=== PATIENT | female | born 1955 | race Caucasian/White ===

== ENCOUNTER 2018-08-09 19:45 | Observation (INO) ==
[2018-08-09 20:36] LABS: Hematocrit 21.7 % (35.3-44.9); Hemoglobin 6.2 g/dL (11.5-15.4); Mean Corpuscular HGB Conc 28.6 g/dL (31.6-35.5); Mean Corpuscular Hemoglobin 19.4 pg (28.0-33.3); Mean Corpuscular Volume 67.8 fL (83.0-100.0); Mean Platelet Volume 8.1 fL (9.4-12.4); Platelet Count 576 K/mcL (140-400); Red Cell Distribution Width 18.6 % (11.5-14.5); White Blood Count 9.3 K/mcL (4.3-11.1)
[2018-08-09 20:52] LABS: BUN/Creatinine Ratio 20 (6-26); Blood Urea Nitrogen 20 mg/dL (8-23); Carbon Dioxide 25 mEq/L (23-29); Chloride 100 mEq/L (98-107); Glucose 108 mg/dL (70-105); Osmolality,Calculated 285 (280-300); Potassium 4.2 mEq/L (3.5-5.1); Sodium 136 mEq/L (136-145); eGFR For African Americans > 60 (> 60); eGFR For Non-African Americans 57 (> 60)
--- NOTE | 2018-08-09 21:27 | Emergency Department Note ---
Disposition Clinical Impression: Anemia Qualifiers: Anemia type: unspecified type Qualified Code(s): D64.9 - Anemia, unspecified Disposition: Admitted As Inpatient Condition: Fair Time of Disposition: 22:30 Recheck wound or abnormal lab - General Chief Complaint: ED Recheck/Abnormal Lab/Rx Stated Complaint: low hgb Source: patient Mode of arrival: private vehicle Limitations: no limitations Nursing Notes Reviewed: Yes Vital Signs Reviewed: Yes - History of Present Illness HPI Narrative: Patient presents to the ED stating that she had outpatient lab work performed today as preop for her upcoming carpal tunnel surgery and was called and told that her blood counts were very low and she should come to the ER because she may need a blood transfusion. She admits to feeling short of breath and very fatigued over the past few days but just attributed it to her depression. She also had noticed that her heart rate had been elevated for the past few weeks ov er 100. She states her heart rate was as high as 130 when she was having her preop testing done. She does have remote history of anemia in the past back in 2011. States they never found a cause and she did see a automatic mold sander. She was on iron supplements for awhile but never required a blood transfusion. She denies any hematochezia, melena or hematuria. - Related Data Home Medications Medication Instructions Recorded Confirmed BuPROPion [Wellbutrin] 75 mg PO DAILY 05/14/18 08/09/18 Methylphenidate HCl [Ritalin] 60 mg PO DAILY 05/14/18 08/09/18 traZODone [TraZODone] 75 mg PO HS 05/14/18 08/09/18 Lipitor 08/09/18 Meloxicam [Mobic] 15 mg PO DAILY 08/09/18 08/09/18 Venlafaxine XR (24 HR) [Effexor XR] 150 mg PO DAILY 08/09/18 08/09/18 Allergies Allergy/AdvReac Type Severity Reaction Status Date / Time No Known Allergies Allergy Verified 08/09/18 08:52 Constitutional: Denies: fever, chills, weakness, weight change Eyes: Denies: eye pain, eye discharge, vision change ENT ED: Denies: ear pain, throat pain, dental pain, hearing loss, epistaxis, congestion, dysphagia Cardiovascular: Denies: chest pain, palpitations, dyspnea on exertion, edema, syncope Respiratory: Reports: as per HPI, dyspnea. Denies: cough, wheezes, hemoptysis, stridor Gastrointestinal: Denies: abdominal pain, nausea, vomiting, diarrhea, constipation, hematemesis, melena, hematochezia Genitourinary: Denies: dysuria, frequency, hematuria, discharge Musculoskeletal: Denies: back pain, neck pain, arthralgia, myalgia Integumentary: Denies: rash, abrasion, lesions Neurological: Denies: headache, weakness, numbness, paresthesias, confusion, abnormal gait, vertigo Psychiatric: Denies: anxiety, depression, suicidal thoughts, homicidal thoughts, auditory hallucinations, visual hallucinations Endocrine: Reports: fatigue Hematological/Lymphatic: Denies: easy bleeding, easy bruising Allergic/Immunologic: Denies: facial swelling, urticaria Past Medical History - Past Medical History Medical history: Reports: arthritis, GERD, hyperlipidemia, hypertension Surgical history: Reports: appendectomy, , cancer surgery, knee replacement, orthopedic, other Psychiatric history: Reports: ADHD - Social History Smoking Status: Never smoker Smokeless Tobacco Status: No Alcohol use: Reports: none Drug use: Reports: none Physical Exam - General Limitations: no limitations General appearance: alert, in no apparent distress - Head Head exam: atraumatic, normocephalic, normal inspection - Eye Eye exam: Present: normal appearance, PERRL, EOMI - ENT ENT exam: normal exam, normal oropharynx, mucous membranes moist - Chest Chest inspection: Present: normal inspection, symmetric chest wall rise - Respiratory Respiratory exam: Present: normal lung sounds bilaterally - Cardiovascular Cardiovascular exam: Present: regular rate, normal rhythm, normal heart sounds - Abdominal Exam Abdominal exam: Present: soft, Non-Tender. Absent: tenderness, distention, guarding, rebound, rigidity - Extremities Exam Extremities exam: Present: normal inspection, full ROM, normal capillary refill. Absent: tenderness, pedal edema - Neurological Exam Neurological exam: Present: alert, oriented X3 - Psychiatric Psychiatric exam: Present: normal affect, normal mood - Skin Skin exam: Present: warm, dry, intact, pallor Course Course Narrative: Dexter presents to the ED after being informed that she was very anemic based on outpatient lab work. She apparently has been having symptoms for at least a few days. On arrival she is hemodynamically stable and nontoxic in appearance. Will recheck lab work and stool guaiac for potential blood loss source. - Reevaluation(s) Reevaluation #1: Labs show an H&H of 6.2 and 21.7. Stool guaiac is negative. Discussed with patient the need for a blood transfusion and she is in agreement. I spoke to the hospitalist on-call, Dr. Cassidy who has agreed to accept the patient. We will also check an iron panel. Vital Signs Temperature 98.5 F 08/09/18 19:49 Pulse Rate 103 08/09/18 19:49 Respiratory Rate 18 08/09/18 19:49 Blood Pressure 148/93 08/09/18 19:49 O2 Sat by Pulse Oximetry 98 08/09/18 19:49 Temperature 98.8 F 08/10/18 03:30 Pulse Rate 97 08/10/18 03:30 Respiratory Rate 16 08/10/18 03:30 Blood Pressure 116/72 08/10/18 03:30 O2 Sat by Pulse Oximetry 94 08/10/18 03:30 Oxygen Delivery Oxygen Delivery Room Air Recheck wound or abnormal lab - Medical Records Medical records reviewed: Yes I reviewed the patient's medical records. - Lab Data Lab results reviewed: Yes I reviewed the patient's lab results. Result diagrams: 08/09/18 20:30 08/09/18 20:30 Lab Results 08/09/18 08/09/18 08/09/18 Range/Units 20:30 20:30 20:30 WBC 9.3 (4.3-11.1) K/mcL RBC 3.20 L (3.82-4.97) M/mcL Hgb 6.2 L (11.5-15.4) g/dL Hct 21.7 L (35.3-44.9) % MCV 67.8 L (83.0-100.0) fL MCH 19.4 L (28.0-33.3) pg MCHC 28.6 L (31.6-35.5) g/dL RDW 18.6 H (11.5-14.5) % Plt Count 576 H (140-400) K/mcL MPV 8.1 L (9.4-12.4) fL Sodium 136 (136-145) mEq/L Potassium 4.2 (3.5-5.1) mEq/L Chloride 100 (98-107) mEq/L Carbon Dioxide 25 (23-29) mEq/L BUN 20 (8-23) mg/dL Creatinine 0.99 (0.60-1.20) mg/dL Est GFR ( Amer) > 60 (> 60) Est GFR (Non-Af Amer) 57 L (> 60) BUN/Creatinine Ratio 20 (6-26) Glucose 108 H (70-105) mg/dL Calculated Osmolality 285 (280-300) Calcium 10.0 (8.6-10.3) mg/dL Stool Occult Blood (Negative) Blood Type O POSITIVE Antibody Screen NEGATIVE Crossmatch See Detail 08/09/18 Range/Units 21:27 WBC (4.3-11.1) K/mcL RBC (3.82-4.97) M/mcL Hgb (11.5-15.4) g/dL Hct (35.3-44.9) % MCV (83.0-100.0) fL MCH (28.0-33.3) pg MCHC (31.6-35.5) g/dL RDW (11.5-14.5) % Plt Count (140-400) K/mcL MPV (9.4-12.4) fL Sodium (136-145) mEq/L Potassium (3.5-5.1) mEq/L Chloride (98-107) mEq/L Carbon Dioxide (23-29) mEq/L BUN (8-23) mg/dL Creatinine (0.60-1.20) mg/dL Est GFR ( Amer) (> 60) Est GFR (Non-Af Amer) (> 60) BUN/Creatinine Ratio (6-26) Glucose (70-105) mg/dL Calculated Osmolality (280-300) Calcium (8.6-10.3) mg/dL Stool Occult Blood Negative (Negative) Blood Type Antibody Screen Crossmatch
[2018-08-09] MEDS ORDERED: Naloxone 0.4 MG/ML INJ IVP PRN ×2 (22:30→23:25)
[2018-08-09] MEDS ORDERED: Acetaminophen 325 MG TABLET PO STA (23:25)
[2018-08-09] MEDS ORDERED: 0.9 % Sodium Chloride 250 ML ONE (23:30)
[2018-08-10] MEDS ORDERED: 0.9 % Sodium Chloride 250 ML ONE (03:16)
[2018-08-10 07:00] LABS: Basophils % 0.3 %; Eosinophils # 0.2 K/mcL (0.0-0.6); Eosinophils % 2.8 %; Hemoglobin 7.7 g/dL (11.5-15.4); Immature Granulocytes % 0.3 % (0-4); Lymphocytes # 1.7 K/mcL (0.6-4.6); Lymphocytes % 25.7 %; Mean Corpuscular HGB Conc 30.8 g/dL (31.6-35.5); Mean Corpuscular Volume 71.4 fL (83.0-100.0); Mean Platelet Volume 7.9 fL (9.4-12.4); Monocytes # 0.6 K/mcL (0.0-1.3); Monocytes % 8.8 %; Neutrophils # 4.2 K/mcL (1.6-8.9); Nucleated Red Blood Cells 0.4 /100 WBC (0); Platelet Count 459 K/mcL (140-400); Red Cell Distribution Width 20.4 % (11.5-14.5); Segmented Neutrophils % 62.1 %; White Blood Count 6.7 K/mcL (4.3-11.1)
[2018-08-10] MEDS ORDERED: Acetaminophen 325 MG TABLET PO PRN ×2 (08:19→08:30)
[2018-08-10 08:44] LABS: Transferrin 444 mg/dL (203-362)
[2018-08-10] MEDS ORDERED: Methylphenidate HCl 10 MG TABLET PO SCH (09:00)
[2018-08-10] MEDS ORDERED: Venlafaxine XR (24 HR) 150 MG CAP.ER.24H PO SCH (09:00)
[2018-08-10 10:22] LABS: % Iron Saturation 2 % (15-50); Iron 15 mcg/dL (50-170)
--- NOTE | 2018-08-10 12:26 | Internal Med History&Physical ---
Date of Encounter: 08/10/18 Time of Encounter: 11:55 Assessment and Plan (1) Anemia Current visit: Yes Status: Acute Suspect iron deficiency from NSAID use. Hemoglobin has improved to 7.7 following transfusion. Anemia testing has shown iron 15, transferrin saturation 2%, transferrin 444. Iron dextran infusion will be given. B12 and folate levels will be ordered. Qualifiers: Anemia type: unspecified type Qualified Code(s): D64.9 - Anemia, unspecified Internal Medicine - H&P: HPI Chief complaint: Anemia Admitted From: Emergency Dept Plans for Post Hospital Care: Home History of present illness: Ms. Guerrero is a 63 year old female who was directed to go to emergency room from staff at her preop testing Center after blood work showed significant anemia. She came to [facility] emergency room and was found to have microcytic anemia with hemoglobin 6.2 and MCV 67.8. She was admitted to observation bed and transfusion of 2 units packed red blood cells was ordered. She reports previous iron deficiency anemia approximately 2011. She received treatment from cannon crewmember/oncologist and states the anemia resolved. She reports she was started on meloxicam by her orthopedist approximately one month ago as treatment for carpal tunnel syndrome. She has also used OTC Motrin (a pproximately 10 pills) and OTC aspirin (approximately 20 pills) in the past month for toothache and other pains. She reports orthostatic symptoms on arising have occurred in the past 2 weeks as well as increased dyspnea on climbing steps at home. She had a melanotic stool 1-2 days ago but did not seek medical attention at that time. She has a diagnosis of GERD. She denies other documented disorders of her liver gallbladder or exocrine pancreas. She reports colonoscopy 2011 was unremarkable. She has not had EGD and has not had epigastric pain. She denies other blood disorders or internal malignancies. Past Med Surg Social Fam HX - Past Medical History Medical history: arthritis, GERD, hyperlipidemia, hypertension Additional medical history: binging disorder Psychiatric history: ADHD - Past Surgical History Surgical History: cancer surgery, knee replacement Additional surgical history: bilat knee replacement - Social History Smoking Status: Never smoker Smokeless Tobacco Status: No Alcohol use: none Drug use: none Internal Medicine - H&P: Meds BuPROPion [Wellbutrin] 75 mg PO DAILY 05/14/18 [History] Methylphenidate HCl [Ritalin] 60 mg PO DAILY 05/14/18 [History] traZODone [TraZODone] 75 mg PO HS 05/14/18 [History] Lipitor 08/09/18 [History] Meloxicam [Mobic] 15 mg PO DAILY 08/09/18 [History] Venlafaxine XR (24 HR) [Effexor XR] 150 mg PO DAILY 08/09/18 [History] Allergy/AdvReac Type Severity Reaction Status Date / Time No Known Allergies Allergy Verified 08/09/18 08:52 All Systems PM: A 10-system review of systems was performed and is negative for pertinent findings except as documented above in the HPI. Review of systems: Gen.: She states her weight has been overall stable in the past year Cardiovascular: She has history of hypertension but denies GA heart failure angina DVT or pulmonary embolus Respiratory: She is a lifelong nonsmoker and denies chronic lung disease GI: As per history of present illness : She denies hematuria dysuria or kidney stones Neurologic: She denies large distribution strokes or seizures. Endocrine: She reports borderline diabetes in the past. She has hyperlipidemia but denies thyroid disease. Hematology/oncology: As per history of present illness Psychiatric: She has depression, ADHD, and binge eating disorder. [place] skeletal: She has had bilateral total knee replacements. She reports bilateral carpal tunnel syndrome with anticipated surgery on the left arm next week. She has DJD but denies gout or other bone joint or muscle disorders. - Constitutional Vitals: Temp Pulse Resp BP Pulse Ox 98.2 F 97 18 129/85 95 08/10/18 10:00 08/10/18 10:00 08/10/18 10:00 08/10/18 10:08/10/18 10:00 Exam: Gen.: She is a well-developed well-nourished female resting comfortably in bed who appears in no acute distress HEENT: Head is atraumatic and normal cephalic. Eyes: EOMI. There is no scleral icterus. Mouth: Mucosa is moist. Neck: Supple and nontender. There is no thyromegaly or adenopathy noted. Heart: Regular without murmurs gallops or ectopics Lungs: No wheezes or crackles are heard. Abdomen: Soft and nontender. No masses or guarding are noted. Extremities: There is no cyanosis edema or clubbing noted. Dorsalis pedis and posterior tibial pulses are 1-2 over 2 bilaterally. Neurologic: Mental status: She is talkative and a good historian. Cranial nerves: Smile is symmetric. Forehead wrinkles bilaterally. Tongue protrudes midline. EOMI. Motor: There is no pronator drift. Cerebellar: Finger to nose is intact bilaterally. Skin: Warm and dry Internal Med - H&P Results - Labs CBC & Chem 7: 08/10/18 06:53 08/09/18 20:30 Labs: Short CBC 08/09/18 08/10/18 Range/Units 20:30 06:53 WBC 9.3 6.7 (4.3-11.1) K/mcL Hgb 6.2 L 7.7 L D (11.5-15.4) g/dL Hct 21.7 L 25.0 L (35.3-44.9) % Plt Count 576 H 459 H (140-400) K/mcL Neutrophils # 4.2 (1.6-8.9) K/mcL BMP 08/09/18 20:30 Sodium 136 Potassium 4.2 Chloride 100 Carbon Dioxide 25 BUN 20 Creatinine 0.99 Glucose 108 H Calcium 10.0 - VTE Reasons for not Prescribing Prophylaxis: Treatment not Indicated - Low risk for VTE
--- NOTE | 2018-08-10 15:36 | Discharge Summary ---
Orders not resulted at time of discharge: Pending orders 08/10/18 13:45 Ferritin Routine Folate Routine Vitamin B12 Routine Date of Encounter: 08/10/18 Time of Encounter: 15:20 - Discharge Diagnosis (1) Anemia Priority: Primary Status: Acute Qualifiers: Anemia type: unspecified type Qualified Code(s): D64.9 - Anemia, unspecified Hospital course: Ms. Guerrero is a 63 year old female who was directed to go to emergency room from staff at her preop testing Center after blood work showed significant anemia. She came to [facility] emergency room and was found to have microcytic anemia with hemoglobin 6.2 and MCV 67.8. She was admitted to observation bed and transfusion of 2 units packed red blood cells was ordered. Initial orders were written by the emergency room physician. I saw her on August 10 and performed the history physical. She received 2 units packed red blood cells transfusion. Hemoglobin improved to 7.7 following transfusion. Anemia testing showed iron 15, transferrin saturation 2%, and transferrin 444. Ferritin B12 and folate levels were ordered with results pending at time of discharge. Iron dextran was ordered to replenish iron stores. She will be discharged home following completion of the iron dextran infusion today. She will remain off NSAIDs and aspirin upon discharge. Her PCP Dr. Ramos can order follow-up labs to ensure hemoglobin stability and review results of the B12 and folate levels. I told her she should see Dr. Ramos before proceeding with carpal tunnel surgery. - Time Spent with Patient Total time spent providing and/or coordinating discharge services: - Discharge Medications Prescriptions: Continued traZODone [TraZODone] 75 mg PO HS BuPROPion [Wellbutrin] 75 mg PO DAILY Methylphenidate HCl [Ritalin] 60 mg PO DAILY Lipitor Venlafaxine XR (24 HR) [Effexor Xr] 150 mg PO DAILY Discontinued Meloxicam [Mobic] 15 mg PO DAILY Home Medications: BuPROPion [Wellbutrin] 75 mg PO DAILY 05/14/18 [History] Methylphenidate HCl [Ritalin] 60 mg PO DAILY 05/14/18 [History] traZODone [TraZODone] 75 mg PO HS 05/14/18 [History] Lipitor 08/09/18 [History] Venlafaxine XR (24 HR) [Effexor Xr] 150 mg PO DAILY 06/26/19 [History] Allergies/Adverse Reactions: Allergy/AdvReac Type Severity Reaction Status Date / Time No Known Allergies Allergy Verified 08/09/18 08:52 Date of admission: 08/09/18 22:37 Primary care physician: Moncho Ramos MD Consults: 08/10/18 00:30 Consult to [employer]loader [CONS] Routine Reason for SW Consult: Patient request consultation - Constitutional Vitals: Temp Pulse Resp BP Pulse Ox 98.4 F 80 16 142/92 96 08/10/18 14:10 08/10/18 15:15 08/10/18 14:10 08/10/18 15:15 08/10/18 14:10 - Patient Status Disposition: Home, Self-Care Condition: Fair - Discharge Instructions Follow Up With: Moncho Ramos MD [Primary Care Provider] - 1 week - Diet and Activity Activity: resume usual activities as tolerated Diet: advance to your usual diet - VTE Reasons for not Prescribing Prophylaxis: Treatment not Indicated - Low risk for VTE
[2018-08-10] MEDS ORDERED: SODIUM CHLORIDE 0.9% IVPB ONE ×2 (16:00→19:45)
[2018-08-10] MEDS ORDERED: IRON DEXTRAN COMPLEX IVPB ONE ×2 (16:00→19:45)
[2018-08-10 16:55] LABS: Folate 9.5 ng/mL (3.0-16.0)
[2018-08-10 17:58] VITALS: BP 146/89
[2018-08-10] MEDS ORDERED: traZODone 50 MG TABLET PO SCH (21:00)
== END 2018-08-10 19:45 | disposition home or self-care (01) ==
LOC: EMEROOPIK 19:45 → INPPIK 19:45
PROVIDERS: ADMIT Internal Medicine; ATTEND Internal Medicine